=== PATIENT | female | born 1975 | race Caucasian/White ===

== ENCOUNTER → 2017-05-21 | Outpatient (REF) ==
--- NOTE | 2017-05-21 12:25 | REP ---
LUMBOSACRAL SPINE: AP and lateral views of the lumbosacral spine performed with three total views obtained. There is straightening of the normal lumbar lordosis. There is partial lumbarization of S1, lumbarized on the right but partially sacralized on the left. There is mild disc space narrowing at L5-S1 with sclerosis at the posterior facet joints at that level. The posterior elements are intact. IMPRESSION: Transitional lumbar vertebral body. S1 is partially lumbarized as discussed above. There are mild degenerative disc changes at L5-S1. Signed by Rafa Rivero MD 05/21/2017 08:11 P
--- NOTE | 2017-05-21 12:43 | REP ---
Right knee five views : There is no fracture or dislocation. Mineralization and joint spaces are normal. There are no calcifications or foreign bodies. Impression: Negative right knee . Signed by Rafa Smith MD 05/21/2017 12:34 P
== END ==
LOC: M SMT 11:29
PROVIDERS: ATTEND Internal Medicine
DX: Z02.1 Encounter for pre-employment examination (principal)